=== PATIENT | male | born 1975 | race Hispanic/Latino ===

== ENCOUNTER 2017-05-27 09:40 | Day surgery (SDC) | payer OTHER ==
[2017-05-20 15:47] VITALS: BMI 25.7
[2017-05-27] MEDS ORDERED: Bupivacaine 0.5% Inj(30mL) ONE (09:51)
[2017-05-27 10:18] LABS: INR 0.98 (0.93-1.08); PARTIAL THROMBOPLASTIN TIME 30.5 Seconds (25.1-36.5); PROTHROMBIN TIME 11.3 SECONDS (9.4-12.5)
[2017-05-27] MEDS ORDERED: Propofol 10 mg/ml Inj (20 ML) ONE ×4 (11:44→13:20)
[2017-05-27] MEDS ORDERED: Midazolam 2 MG/2 ML VIAL ONE ×2 (11:45→12:13)
[2017-05-27] MEDS ORDERED: Rocuronium 10 mg/ml (5 ml) ONE ×2 (11:51→13:03)
[2017-05-27] MEDS ORDERED: Sevoflurane - Inhalation Anesthetic Liq (250 ml) ONE (12:33)
[2017-05-27] MEDS ORDERED: Morphine 2 mg/ml ISec IVP PRN (13:00)
[2017-05-27] MEDS ORDERED: Lactated Ringer's 1,000 ML IV SCH (13:00)
[2017-05-27] MEDS ORDERED: Neostigmine Methylsulfate 3mg/3ml Syringe IV ONE (13:22)
[2017-05-27] MEDS ORDERED: Glycopyrrolate 0.2 mg/ml (2ml vial) ONE (13:22)
--- NOTE | 2017-05-27 14:04 | PCM.SURG1 ---
Surgeon's Initial Post Op Note - Surgeon's Notes Surgeon: Dr. Neville Drawing In Machine Tender: Diane Serna, PGY2; Venessa Luong OMS3 Type of Anesthesia: General Endo Anesthesia Administered By: Dr. Mcgee Pre-Operative Diagnosis: Recurrent right incarcerated inguinal herna Operative Findings: incarcerated right indirect inguinal hernia Post-Operative Diagnosis: same Operation Performed: repair of recurrent right inguinal hernia with mesh Specimen/Specimens Removed: hernia sac Estimated Blood Loss: EBL {In ML}: 5 Blood Products Given: N/A Drains Used: No Drains Post-Op Condition: Fair Date of Surgery/Procedure: 05/27/17 Time of Surgery/Procedure: 12:00
[2017-05-27 15:10] VITALS: RESP 18; TEMP 98.6
[2017-05-27 15:52] VITALS: BP 135/85; PULSE 66; O2SAT 97
--- NOTE | 2017-05-28 00:24 | OP ---
PROCEDURE DATE: 05/27/2017 PREOPERATIVE DIAGNOSIS: Recurrent incarcerated right inguinal hernia. POSTOPERATIVE DIAGNOSIS: Recurrent incarcerated right inguinal hernia. PROCEDURE: Repair of the incarcerated recurrent right inguinal hernia with mesh. SURGEON: Chriss Neville MD. [employer]CH[employer] RETAIL REPRESENTATIVE: Dr. Serna. TYPE OF ANESTHESIA: General endotracheal anesthesia. ANESTHESIA ADMINISTERED BY: Dr. Mcgee. ESTIMATED BLOOD LOSS: Minimal. SPECIMEN: Hernia sac. INDICATIONS: The patient is a 41-year-old male with a history of right inguinal hernia repair about 20 years ago, who comes in with a large lump in the right groin associated with tenderness and discomfort and was diagnosed with incarcerated right inguinal hernia. The patient was brought in for the repair. DESCRIPTION OF PROCEDURE: The patient was brought to the operating room and placed on the operating room table in supine position. The patient was connected to EKG, blood pressure, and pulse oximetry monitors. The patient then underwent general endotracheal anesthesia and was prepped and draped in usual sterile fashion. Using lidocaine mixed with Marcaine, the area of the incision was infiltrated and incision was carried through the subcutaneous fat, fascia down to the external oblique aponeurosis. The adhesions and scar tissue from the previous surgery was carefully dissected out. Once the area of the external oblique aponeurosis was identified, it was carefully dissected off the spermatic cord underlying and beneath, and the cord itself with its structure was carefully mobilized. It appeared that the cord contained a large recurrent incarcerated hernia, which was carefully manipulated and eventually reduced, once the area was mobilized. Once this was done, the hernia sac was carefully from the surrounding tissues and dissected out and ligated at its base. The preperitoneal space was mobilized and an UltraPro mesh patch was placed into the preperitoneal space. The external portion of the patch was then placed flatly on the floor of the inguinal canal and sutured to the edges of the transversalis fascia and inguinal ligament. A hatfield hole was cut out for the exit site of the spermatic cord. Once this was done, the cord was placed back into its original position. The area was carefully dissected out in order to identify the ilioinguinal nerve, which was not visualized. At this point, I proceeded for closure of the external oblique aponeurosis in a running fashion using 3-0 Vicryl. The subcutaneous tissues were copiously infiltrated with Marcaine mixed with Toradol and the subcutaneous tissues were closed using 3-0 Vicryl for the Xiomara's fascia, 3-0 Vicryl for the deep dermal layer, and 4-0 Monocryl for skin. A sterile Dermabond dressing was applied to the wound. The patient tolerated the procedure well and there were no complications. The patient was awakened, extubated, and transferred to the recovery room for further observation. Prior to starting this procedure, a standard time-out procedure took place and everybody in the room agreed as to the patient's identity, diagnosis, and procedure to be performed. Chriss Neville MD
== END 2017-05-27 16:15 | disposition home or self-care (01) ==
LOC: SDS 09:40
PROVIDERS: ATTEND General Practice
DX: K40.31 Unilateral inguinal hernia, with obstruction, without gangrene, recurrent (principal); I10 Essential (primary) hypertension; F17.210 Nicotine dependence, cigarettes, uncomplicated
CPT/HCPCS: 36415; 49521; 85610; 85730; 88302; J0690; J1885; J2001; J2250; J2270; J2405; J2704; J2710; J3010; J7120